=== PATIENT | male | born 1965 | race Caucasian/White ===

== ENCOUNTER → 2023-08-23 15:23 | Outpatient (REF) | payer OTHER, SELFPAY | LOC: RAD 15:23 | PROVIDERS: ATTENDING PHYSICIAN Internal Medicine | DX: R31.29 Other microscopic hematuria (principal) | CPT/HCPCS: 74178; Q9967 ==

== ENCOUNTER 2023-08-25 17:02 | Inpatient (IN) | payer OTHER, SELFPAY ==
[2023-08-25 13:50] VITALS: BP 128/74
[2023-08-25 14:30] LABS: Hematocrit 37.2 % (39.0-52.0); Hemoglobin 13.1 g/dL (13.0-18.0); Mean Corp Hgb Conc. 35.2 g/dL (33.0-37.0); Mean Corpuscular Hgb 33.9 pg (27.0-31.0); Mean Corpuscular Volume 96.1 fL (80.0-94.0); Mean Platelet Volume 11.2 fL (7.4-10.4); Platelet Count 130 10^3/uL (130-400); Red Blood Cell Count 3.87 10^6/uL (4.70-6.10); White Blood Cell Count 4.6 10^3/uL (4.8-10.8)
[2023-08-25 14:36] LABS: ALT (SGPT) 31 U/L (0-50); AST (SGOT) 31 U/L (17-59); Albumin 3.6 g/dl (3.5-5.0); Alkaline Phosphatase 41 U/L (38-126); Blood Urea Nitrogen 11 mg/dl (9-20); Calcium 8.8 mg/dl (8.4-10.2); Carbon Dioxide 33 mmol/L (22-30); Chloride 105 mmol/L (98-107); Glucose 129 mg/dl (70-99); Sodium 139 mmol/L (135-145); Total Bilirubin 1.1 mg/dl (0.2-1.3); Total Protein 5.8 g/dl (6.3-8.2); eGFR > 60.00
[2023-08-25 14:45] LABS: Absolute Neutrophils -Man Diff 2.9 10^3/uL (1.4-6.5); Band Neutrophils 1 % (0-3); Eosinophils 5 % (0-6); Lymphocytes 28 % (20-51); Monocytes 3 % (2-9); Segmented Neutrophils 63 % (42-75)
[2023-08-25 14:46] LABS: Normal RBC Morphology Yes; Platelets Checked Yes; Total Cells Counted 100
[2023-08-25 15:24] VITALS: BMI 36.1
[2023-08-25 15:32] LABS: Urine Albumin Negative (Neg - Trace); Urine Bilirubin Negative (Negative); Urine Character Clear (Clear); Urine Color Yellow; Urine Glucose Negative (Negative); Urine Ketone Negative (Negative); Urine Leukocyte Trace (Negative); Urine Nitrite Negative (Negative); Urine Occult Blood 4+ (Negative); Urine Specific Gravity 1.015 (<1.030); Urine Urobilinogen Negative (Neg - 1+)
--- NOTE | 2023-08-25 15:39 | ED.GENMED ---
History of Present Illness
General
Chief Complaint: Abnormal Lab Value
Source: patient
Exam Limitations: none
Time Seen by Provider: 08/25/23 15:08
Travel History
Have you had any contact with someone who has COVID-19?: No
Do you have any symptoms of coronavirus? Fever > 100 degrees, chills, cough, shortness of breath, sore throat, loss of taste or smell, muscle aches, or headache?: No
History of Present Illness
History of Present Illness:
58-year-old male presents in referral from family doctor with back pain. Patient had an outpatient CT scan done 2 days ago which demonstrated a 6 x 7 mm stone in the right mid ureter as well as a 4 mm stone in the left proximal ureter. He was sent
in for further evaluation. Is been no fever or vomiting. He is urinating well. He is on Eliquis for history of multiple blood clots. No other complaints at this time
Past History
Past History
ED Past Medical History: HTN, Hypercholesterolemia, Other (chronic back pain takes Gabapentin) and Other (Psoriatic arthritis, started Orencia infusion 07/2022)
ED Past Surgical History: Appendectomy
Social History
Tobacco: Non-smoker
Alcohol: Occasional
Personal:
Living: with family
Employment: Employed
Phy Exam
Physical Exam
Physical Exam:
General: Well-appearing male no acute respiratory distress
HEENT: Normocephalic atraumatic
Heart: Regular rate and rhythm no murmurs
Lungs: Clear to auscultation bilaterally no wheezing
Abdomen is soft nontender nondistended no guarding rebound normal bowel sounds
Extremities: No cyanosis or edema
Course
Orders/Labs/Results
Orders:
Orders
08/25/23 14:02
CMP [Comprehensive Metabolic Panel] Urgent
Complete Blood Count/With Diff Urgent
Manual Differential Urgent
08/25/23 15:23
Urinalysis Reflex To Culture Urgent
Date Specimen was Collected: 08/25/23
Time Specimen was Collected: 15:20
Urine Microscopic Reflex Cult Urgent
08/25/23 15:38
Tamsulosin [Flomax] 0.4 mg PO NOW STA
Abnormal Lab Results
08/25/23 08/25/23
14:02 15:23
WBC 4.6 L 10^3/uL
(4.8-10.8)
RBC 3.87 L 10^6/uL
(4.70-6.10)
Hct 37.2 L %
(39.0-52.0)
MCV 96.1 H fL
(80.0-94.0)
MCH 33.9 H pg
(27.0-31.0)
MPV 11.2 H fL
(7.4-10.4)
Carbon Dioxide 33 H mmol/L
(22-30)
Glucose 129 H mg/dl
(70-99)
Total Protein 5.8 L g/dl
(6.3-8.2)
Ur Occult Blood Reflex 4+ A
(Negative)
Leukocyte Esterase Rfl Trace A
(Negative)
08/25/23 14:02
08/25/23 14:02
Vital Signs
Initial and Last Documented VS:
Initial Vital Signs
Temp Pulse Resp BP Pulse Ox
98.1 F 59 18 128/74 97
08/25/23 13:50 08/25/23 13:50 08/25/23 13:50 08/25/23 13:50 08/25/23 13:50
Last Documented Vital Signs
Temp Pulse Resp BP Pulse Ox
98.1 F 59 18 128/74 97
08/25/23 13:50 08/25/23 13:50 08/25/23 13:50 08/25/23 13:50 08/25/23 13:50
MDM/Problems Addressed
Differential Diagnosis Includes:
I reviewed the CAT scan done as an outpatient which demonstrates bilateral obstructing ureteral stones. Immediately called urology and notified them of the findings. Renal functions are stable no fever. Urology prefers to take patient to the OR
tomorrow and hold Eliquis until then. Will admit to hospitalist
*Critical Care Note
Total Time (30-74mins, 75-104mins- exclusive of procedures): Not Applicable
ED Attending Note
-
Portions of this chart may have been created with voice recognition software.� Occasional wrong word or��sound alike� substitutions may have occurred due to the inherent limitations of voice recognition software.
Discharge Plan
Departure
Patient Disposition: Admit
Date of Disposition: 08/25/23
Time of Disposition: 15:41
Admit to: Med/Surg
Presentation/result/management discussed w/ accepting MD/DO: Hospitalist
Discharge Problem:
Bilateral ureteral calculi
Prescriptions:
No Action
furosemide [Lasix] 40 mg Tablet
40 mg PO NOON
atorvastatin [Lipitor] 20 mg Tablet
20 mg PO QPM
atenolol 100 mg Tablet
100 mg PO QPM
amlodipine [Norvasc] 5 mg Tablet
5 mg PO QPM
ascorbic acid (vitamin C) [Vitamin C] 500 mg Tablet
500 mg PO BID
methotrexate sodium 2.5 mg Tablet
10 mg PO SUSA
diphenhydramine HCl [Benadryl] 25 mg Capsule
25 - 50 mg PO HS
calcium polycarbophil [FiberCon] 625 mg Tablet
1,250 mg PO TID
folic acid 1 mg Tablet
1 mg PO DAILY
magnesium oxide 250 mg magnesium Tablet
500 mg PO QPM
Orencia 50 mg/0.4 mL Syringe
50 mg SC Q4W
gabapentin 300 mg Capsule
900 mg PO TID
Eliquis 5 mg tablet
5 mg PO BID
Referrals:
Brian Saleem, [Family Provider] -
Interventions
Interventions:
*Risk Screen - Suicide Last Done: 08/25/23 13:50
*General Assessment Last Done: 08/25/23 13:50
*Neglect/Abuse Screening Last Done: 08/25/23 13:50
ED- Fall Risk Assessment Last Done: 08/25/23 15:25
*ED COVID-19 Vaccine History Last Done: 08/25/23 13:50
[2023-08-25 15:42] LABS: Urine Bacteria Few (Negative); Urine Red Blood Cell 40-50 /HPF (0-2)
[2023-08-25] MEDS: FLOMAX 0.400000000000000022 MG PO ×2 (15:42→21:04)
--- NOTE | 2023-08-25 16:11 | HPS.HSE ---
Family Physician
-
Family Physician: Brian Saleem
Chief Complaint
-
Obstructing stones on CT scan (sent in by PCP)
History of Present Illness
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
nephrolithiasis. Pt had CT a/p performed 08/23 as follow up for intermittent hematuria since June. Reports hematuria initially being light, but then having some darker clots. Denies any significant worsening of flank pain. Endorses chronic left
sided back/flank pain related to back problems. Denies fever, chills, dizziness/LH, CP, palps, wheezing, cough, abd pain, n/v/d/c, dysuria. Last dose of eliquis this morning. Did not take lasix today.
ER course: Pt presents BP 173/102 -> 128/74, other V.S.S. WBC 4.6K. BUN/Cr 11/.1. UA few bact, 3-5 WBC, 4+ Blood. CT a/p with 6x7 mm mid right ureteral stone with mod hydroureteronephrosis and 4mm prox calculus in left ureter with adjacent 2mm calc
probable low grade partial obstruction. Additional b/l nonobstructing intrarenal calculi and renal cysts. Case D/W Urology Dr. Cordova. Tenative plan for OR tomorrow with eliquis on hold. S/P 0.4mg Flomax in ER.
Medical History
Past Medical History
Past Medical History: Reports Other (DVT/PE on Eliquis,�Right Brachial Artery Thrombosis s/p Thrombectomy, CVA, HTN/HLD, Chronic Pain/Neuropathy, Psoriatic Arthritis, Nephrolithiasis)
Past Surgical History: Reports Other (Appendectomy, RUE Thrombectomy)
Social History
Tobacco: Non-smoker
Alcohol: Occasional (social)
Drug: None
Personal:
Living: With Family
Family History
Family History: Other (Denies FHx of blood clots. Mother with HTN)
Allergies / Home Medications
Allergies reflects when Allergies were last updated in [employer].
Home Medications with original date entered in [employer]
Allergy/Medication List:
Allergies
Allergy/AdvReac Type Severity Reaction Status Date / Time
latex Allergy Mild Rash Verified 08/25/23 13:50
Home Medications
abatacept 50 mg/0.4 mL subcutaneous syringe (Orencia) 50 mg SC Q4W Anti-inflammatory 09/02/22
amlodipine 5 mg tablet (Norvasc) 5 mg PO QPM Blood pressure 09/02/22
ascorbic acid (vitamin C) 500 mg tablet (Vitamin C) 500 mg PO BID Supplement 09/02/22
atenolol 100 mg tablet 100 mg PO QPM Blood pressure 09/02/22
atorvastatin 20 mg tablet (Lipitor) 20 mg PO QPM High cholesterol 09/02/22
calcium polycarbophil 625 mg tablet (FiberCon) 1,250 mg PO TID Gastrointestinal issue 09/02/22
diphenhydramine HCl 25 mg capsule (Benadryl) 25 - 50 mg PO HS Allergies 09/02/22
folic acid 1 mg tablet 1 mg PO DAILY Supplement 09/02/22
furosemide 40 mg tablet (Lasix) 40 mg PO NOON Fluid retention/Swelling 09/02/22
magnesium oxide 500 mg PO QPM Supplement 09/02/22
methotrexate sodium 2.5 mg tablet 10 mg PO SUSA Anti-inflammatory 09/02/22
apixaban 5 mg tablet (Eliquis) 5 mg PO BID 08/25/23
gabapentin 300 mg capsule 900 mg PO TID 08/25/23
Review of Systems
-
A 12 point ROS was completed and negative except as noted: Yes
Physical Exam
Vital Signs
Vital Signs
Temp Pulse Resp BP Pulse Ox
98.1 F 59 18 128/74 97
08/25/23 13:50 08/25/23 13:50 08/25/23 13:50 08/25/23 13:50 08/25/23 13:50
Physical Exam
General: Well Developed, Well Nourished and No Apparent Distress
HEENT: NormoCephalic, Moist mucous membranes and Atraumatic
Respiratory: Clear
Cardiac: S1/S2 and Regular Rhythm; No Murmur or Rub
GI: Soft, Non Tender, Non Distended and Normal Bowel Sounds; No Organomegaly
Rectal: Deferred by Provider
Genito-urinary: Costovertebral angle tend (Mild on left); No Membreno
Musculoskeletal: No Clubbing, No Cyanosis, Edema, Left Lower Extremity (1+), Edema, Right Lower Extremity (trace) and No Edema
Skin: Warm and Dry; No Rash, Ulcers or Lesions
Neuro: Awake, Alert, Oriented, AO x 3, No Motor Deficits, Nonfocal/grossly intact and Other (+TTP left flank/back.)
Hematologic/Lymphatic: No Lymphadenopathy
Psych: Calm
Laboratory Results
-
08/25/23 14:02
08/25/23 14:02
Laboratory Results
Total Bilirubin 1.1 mg/dl (0.2-1.3) 08/25/23 14:02
AST 31 U/L (17-59) 08/25/23 14:02
ALT 31 U/L (0-50) 08/25/23 14:02
Alkaline Phosphatase 41 U/L (38-126) 08/25/23 14:02
Data Reviewed
-
Diagnostic Radiology: Report Reviewed by me
CT Scan: Report Reviewed by me
Lab Data: Labs Reviewed by me
Old Records: Reviewed
Impression/Plan
-
Obstructive Uropathy
- CT a/p with 6x7 mm mid right ureteral stone with mod hydroureteronephrosis and 4mm prox calculus in left ureter with adjacent 2mm calc probable low grade partial obstruction. Additional b/l nonobstructing intrarenal calculi and renal cysts.
- NPO. IVF. Flomax. Prn Analgesia with tylenol/morphine. Prn Antiemetics
- Urology notified and consulted. Tenative plan for OR tomorrow with eliquis on hold. Will need to consider heparin gtt if no immediate plans for surgery
Hematuria
- 2/2 above. 4+ Blood on UA. Eliquis on hold. Trend H&H for stability
- Further management as per urology
Hx PE/DVT / RUE Arterial Thrombosis
- s/p Thrombectomy 08/2022
- Last dose of eliquis this morning. Will need to consider heparin gtt if no immediate plans for surgery
CVA
- ~1month ago, resolved left sided deficits and facial droop
- Continue eliquis and statin
HTN/HLD
- BP 170/100s on admission. Likely 2/2 pain. Monitor trends with appropriate analgesia
- Cont home amlodipine and atenololl. Will hold lasix for now
- Continue home statin
Chronic Pain/Neuropathy
- Continue home gabapentin
Psoriatic Arthritis
- Continue home orencia on discharge
- Continue home MTX
Code status: Full
Diet: Cardiac, NPO at midnight
PPx: Eliquis held (last dose 08/25 AM). SCDs.
[2023-08-25 17:12] VITALS: BP 131/81
[2023-08-25 17:45] VITALS: BP 133/81; BMI 35.8
[2023-08-25] MEDS: LR 1000 IV (18:01)
[2023-08-25] MEDS: NORVASC PO ×2 (18:28→18:32)
[2023-08-25] MEDS: LIPITOR 20 MG PO (18:28)
[2023-08-25] MEDS: MAGNESIUM OXIDE 500 MG PO (18:28)
[2023-08-25] MEDS: TENORMIN 100 MG PO (18:29)
--- NOTE | 2023-08-25 18:32 | PTCARENOTE ---
pt presents from ED via strertcher. pt is independent. denies any pain or discomfort. pt is oriented to the room. call galvez within the reach. will continue plan of care.
[2023-08-25 19:30] VITALS: BP 131/63
[2023-08-25] MEDS: VITAMIN C 500 MG PO (19:56)
[2023-08-25] MEDS: FIBERCON 1250 MG PO (21:04)
[2023-08-25] MEDS: NEURONTIN 900 MG PO (21:04)
[2023-08-25 23:55] VITALS: BP 112/59
[2023-08-26] VITALS (11 sets, daily range): BP systolic 105–146; BP diastolic 54–90
[2023-08-26] MEDS: LR 1000 IV (02:55)
[2023-08-26 08:39] LABS: Hematocrit 36.4 % (39.0-52.0); Hemoglobin 12.6 g/dL (13.0-18.0); Mean Corp Hgb Conc. 34.6 g/dL (33.0-37.0); Mean Corpuscular Hgb 33.6 pg (27.0-31.0); Mean Corpuscular Volume 97.1 fL (80.0-94.0); Mean Platelet Volume 11.6 fL (7.4-10.4); Nucleated Red Blood Cells % 0 % (-); Platelet Count 122 10^3/uL (130-400); Red Blood Cell Count 3.75 10^6/uL (4.70-6.10); Red Cell Dist. Width 14.3 % (11.5-14.5); White Blood Cell Count 4.2 10^3/uL (4.8-10.8)
[2023-08-26 08:43] LABS: INR 1.42; PT 17.2 Sec (11.4-14.6)
--- NOTE | 2023-08-26 08:45 | W.PN.UPDATE ---
Update Note
Progress Note Update
58M w/ significant PMH (DVT/PE on Eliquis, RUE arterial thrombosis s/p thrombectomy, CVA) presents to ER with hematuria w/ clots (hematuria since June).
Notes chronic left flank/back pain related to h/o back pain.
Denies F/C/N/V.
Justin dysuria.
Last dose Eliquis 08/25 AM.
Prior urologic h/o kidney stone passage w/o surgical intervention.
WBC wnl
Cr wnl
UA +RBCs
CTAP w/wo IV contrast:
6 x 7 mm calculus in the mid RIGHT ureter. Moderate proximal hydroureteronephrosis, consistent with obstructive uropathy.
4 mm calculus in the proximal left ureter, with adjacent approximately 2 mm calculus. Probable low-grade partial obstruction.
Additional bilateral nonobstructing intrarenal calculi. Bilateral renal cysts.
A/P:
Bilateral obstructing ureteral stones w/ obstructive uropathy
Detailed discussion including SDM had w/ patient regarding risks, benefits, alternatives, and potential complications of cysto/stent placement including but not limited to urosepsis, bleeding, ureteral/bladder injury, need for additional procedures.
Given BILATERAL obstructing ureteral stones in setting of last Eliquis dose <24 hrs ago and significant risk of thromboembolic disease - will proceed with bilateral stent placement only.
- NPO
- IV Ancef 2g pony trimmer to OR
- Surgical consent to be signed in preop
- To OR for cysto/bilateral stent placement
- Plan for definitive stone treatment as outpatient after clearance by Hematology
Discussed plan of care w/ patient.
[2023-08-26 08:56] LABS: Blood Urea Nitrogen 10 mg/dl (9-20); Calcium 8.8 mg/dl (8.4-10.2); Carbon Dioxide 31 mmol/L (22-30); Chloride 103 mmol/L (98-107); Estimated Creatinine Clearance 102 ml/min; Glucose 91 mg/dl (70-99); Magnesium 2.1 mg/dl (1.6-2.3); Potassium 3.8 mmol/L (3.5-5.1); Sodium 140 mmol/L (135-145); eGFR > 60.00
[2023-08-26] MEDS: NEURONTIN 900 MG PO ×3 (09:02→20:06)
[2023-08-26] MEDS: FIBERCON 1250 MG PO ×3 (09:03→20:07)
[2023-08-26] MEDS: VITAMIN C 500 MG PO ×2 (09:03→20:09)
[2023-08-26] MEDS: FOLVITE 1 MG PO (09:04)
[2023-08-26] MEDS: METHOTREXATE 10 MG PO (09:06)
--- NOTE | 2023-08-26 09:41 | W.PN.HOSP.TC ---
Today's Communication/Plan
-
see bold
Assessment / Plan
Assessment / Plan
Gen: NAD, AAOx3.
Eyes: EOMI, PERRLA, no scleral icterus.
Neck: supple.
CV: RRR, +S1/S2, no m/r/g.
Resp: CTAB, no rales, wheezes, or rhonchi.
Abd: +BS, soft, NT, ND
Skin: No rashes.
Neuro: CN 2-12 intact, non-focal.
Psych: Normal mood and affect.
Obstructive Uropathy:
- CT a/p with 6x7 mm mid right ureteral stone with mod hydroureteronephrosis and 4mm prox calculus in left ureter with adjacent 2mm calc probable low grade partial obstruction. Additional b/l nonobstructing intrarenal calculi and renal cysts.
- NPO. IVF. Flomax. Prn Analgesia with tylenol/morphine. Prn Antiemetics
- Urology following, for B/L ureteral stents today
Hematuria
- 2/2 above. 4+ Blood on UA. Eliquis on hold. Trend H&H for stability
- Case discussed over the phone with Dr. Cordova at [phone] on 08/26/23. He states that eliquis can be restarted 08/28/23AM.
Hx PE/DVT / RUE Arterial Thrombosis
- s/p Thrombectomy 08/2022
- Last dose of eliquis 08/25/23AM.
h/o CVA
- ~1month ago, resolved left sided deficits and facial droop
- Continue eliquis (once OK with Urology) and statin
HTN/HLD
- BP 170/100s on admission. Likely 2/2 pain. Monitor trends with appropriate analgesia
- Cont home amlodipine and atenololl. Will hold lasix for now
- Continue home statin
Chronic Pain/Neuropathy
- Continue home gabapentin
Psoriatic Arthritis
- Continue home orencia on discharge
- Continue home MTX
Full/SCDs.
Anticipated Discharge: Within 24 hours
Subjective/Interval History
-
Date of Service: August 26, 2023
No new complaints. Denies CP/SOB/abd pain.
Objective Data
-
Labs:
Laboratory Results
08/26/23
08:08
WBC 4.2 L
Hgb 12.6 L
Hct 36.4 L
Plt Count 122 L
PT 17.2 H
INR 1.42
Sodium 140
Potassium 3.8
Chloride 103
Carbon Dioxide 31 H
BUN 10
Creatinine 1.0
Glucose 91
Calcium 8.8
Vital Signs:
Vital Signs
Temp Pulse Resp BP Pulse Ox
98.4 F 60 18 105/54 97
08/26/23 07:41 08/26/23 07:41 08/26/23 07:41 08/26/23 07:41 08/26/23 07:41
I&O
08/25/23 08/26/23 08/27/23
06:59 06:59 06:59
Intake Total 480 / 480 1680 / 1680
Output Total 350 / 350 675 / 675
Balance 130 / 130 1005 / 1005
[2023-08-26] MEDS: ANCEF 10 IV (10:40)
--- NOTE | 2023-08-26 10:47 | W.PN.UPDATE ---
Update Note
Progress Note Update
Case discussed again with Dr. Cordova. Pt can go back on Eliquis tomorrow AM.
--- NOTE | 2023-08-26 10:50 | W.PN.UPDATE ---
Update Note
Progress Note Update
Heparin gtt ordered to start at 1800 today (post op) in pt with DVT/PE and RUE arterial thrombus. Dr. Cordova is OK with heparin gtt.
[2023-08-26 11:07] LABS: APTT 35.7 Sec (23.4-35.0)
--- NOTE | 2023-08-26 11:43 | W.IMMPOSTOP ---
Addendum entered and electronically signed by Mahendra Cordova MD 08/26/23 12:05:
Spouse (Arlen) updated post-op.
s/p bilateral stent placement and catheter placement - noted to have friable prostate gland secondary to Eliquis.
Advise against hep gtt terri (d/w Hospitalist) w/ plan for TOV within 24 hrs.
Will need definitive outpatient stone surgery once cleared by Hematology w/ Eliquis recs.
Original Note:
Surgical Immed Post Op Note
-
Primary Surgeon: Tasha
Pre-op Diagnosis: Bilateral obstructing ureteral stones
Post-op Diagnosis: Same
Procedure Performed: cysto, bilateral ureteral stent placement
Anesthesia Type: LMA
Specimen / Cultures: None/None
Estimated Blood Loss: 3 cc
Drains:
1. Bilateral 6Fr x 26 cm JJ ureteral stents
2. 20Fr Coude catheter
Complications: None
Operative Findings: friable prostate gland (<24 hrs off Eliquis) with cystitis, bilateral JJ stents confirmed in appropriate position via final KUB and cystoscopy at conclusion of procedure.
--- NOTE | 2023-08-26 11:49 | W.PN.UPDATE ---
Update Note
Progress Note Update
Case discussed with Dr. Cordova post-op and he is now recommending against heparin gtt tonight. Will place back on tele (precautionary).
--- NOTE | 2023-08-26 12:29 | PTCARENOTE ---
Patient is back in room from OR. Patient is aaox3, denies pain or discomfort. States he feels like he has to urinate. Membreno catheter in place and draining punch color urine. Call galvez within reach.
[2023-08-26 12:34] LABS: Absolute Neutrophils -Man Diff 2.9 10^3/uL (1.4-6.5); Band Neutrophils 3 % (0-3); Eosinophils 1 % (0-6); Lymphocytes 22 % (20-51); Monocytes 6 % (2-9); Normal RBC Morphology Yes; Platelets Checked Yes; Segmented Neutrophils 68 % (42-75); Total Cells Counted 100
[2023-08-26] MEDS: DETROL LA 4 MG PO (13:16)
[2023-08-26] MEDS: NORVASC 5 MG PO (18:07)
[2023-08-26] MEDS: VALIUM INJECTION 5 MG IM (18:07)
[2023-08-26] MEDS: TENORMIN 100 MG PO (18:07)
[2023-08-26] MEDS: MAGNESIUM OXIDE 500 MG PO (18:07)
[2023-08-26] MEDS: LIPITOR 20 MG PO (18:07)
[2023-08-26] MEDS: NSS 1000 IV (18:16)
[2023-08-26] MEDS: FLOMAX 0.400000000000000022 MG PO ×2 (18:20→20:09)
--- NOTE | 2023-08-26 18:21 | PTCARENOTE ---
Patient with increasing bladder discomfort, states he feels nauseas from the amount of discomfort. He states his bladder feels full. Dark punch color urine in bedoya tubing. Urologist notified. Valium IM ordered for bladder spasm, d.c bedoya ordered,
IVF, and flomax ordered and administered. Patient appears more comfortable states the nausea went away. KH SCD on, at bedside, patient will notify RN when he urinates. Patient updated on plan of care. Call galvez within reach.
[2023-08-26 22:35] LABS: Hepatitis C Antibody Negative (Negative)
[2023-08-27 03:55] VITALS: BP 128/79
[2023-08-27] MEDS: NSS 1000 IV (05:51)
--- NOTE | 2023-08-27 07:25 | W.PN.HOSP.TC ---
Today's Communication/Plan
-
discharge
Assessment / Plan
Assessment / Plan
Gen: NAD, AAOx3.
Eyes: EOMI, PERRLA, no scleral icterus.
Neck: supple.
CV: RRR, +S1/S2, no m/r/g.
Resp: CTAB, no rales, wheezes, or rhonchi.
Abd: +BS, soft, NT, ND
Skin: No rashes.
Neuro: CN 2-12 intact, non-focal.
Psych: Normal mood and affect.
Obstructive Uropathy:
- CT a/p with 6x7 mm mid right ureteral stone with mod hydroureteronephrosis and 4mm prox calculus in left ureter with adjacent 2mm calc probable low grade partial obstruction. Additional b/l nonobstructing intrarenal calculi and renal cysts.
- Prn Analgesia with tylenol/morphine. Prn Antiemetics
- Urology eval appreciated s/p B/L ureteral stents 08/26
Hematuria resolving
- 2/2 above. 4+ Blood on UA. Eliquis on hold. H&H relatively stable
- Urology Eval appreciated
-Eliquis to resume Mon 08/28
Hx PE/DVT / RUE Arterial Thrombosis
- s/p Thrombectomy 08/2022
- Last dose of eliquis 08/25/24AM.
h/o CVA
- ~1month ago, resolved left sided deficits and facial droop
- Eliquis to resume as above, cont statin
HTN/HLD
- BP 170/100s on admission. Likely 2/2 pain. Monitor trends with appropriate analgesia
- Cont home amlodipine and atenololl. Will hold lasix for now
- Continue home statin
-BP since improved
Chronic Pain/Neuropathy
- Continue home gabapentin
Psoriatic Arthritis
- Continue home orencia on discharge
- Continue home MTX
Full/SCDs.
Medically stable for discharge home with outpatient follow up recommendations.
discussed with patient and his
Total Time Preparing Discharge ___50____ minutes including examination of the patient, summary of the hospital stay, instructions for continuing care to all relevant caregivers; and preparation of discharge records, prescriptions, and referral
forms if necessary.
Anticipated Discharge: Today
Subjective/Interval History
-
Date of Service: August 27, 2023
Seen and examined at bedside in no acute distress resting comfortably in bed. Reports overall feeling well. Eager to go home.
Objective Data
-
Vital Signs:
Vital Signs
Temp Pulse Resp BP Pulse Ox
97.8 F 73 18 128/79 95
08/27/23 03:55 08/27/23 03:55 08/27/23 03:55 08/27/23 03:55 08/27/23 03:55
I&O
08/26/23 08/27/23 08/28/23
06:59 06:59 06:59
Intake Total 480 / 480 1780 / 1780
Output Total 350 / 350 1550 / 1550 735 / 735
Balance 130 / 130 230 / 230 -735 / -735
[2023-08-27] MEDS: VITAMIN C 500 MG PO (09:00)
[2023-08-27] MEDS: FIBERCON 1250 MG PO (09:00)
[2023-08-27] MEDS: FOLVITE 1 MG PO (09:00)
[2023-08-27] MEDS: NEURONTIN 900 MG PO (09:00)
[2023-08-27] MEDS: METHOTREXATE 10 MG PO (09:04)
--- NOTE | 2023-08-27 09:15 | W.PN.URO.CBU ---
Today's Communication / Plan
-
OK to d/c home from urologic perspective
Advise restarting Eliquis Mon 08/28 if cleared by Hospital Medicine
F/U in 2 weeks for preop visit to schedule definitive outpatient stone surgery
D/w patient.
D/w Dr. Malcolm.
Assessment / Plan
-
Bilateral ureteral obstruction - secondary to bilateral ureteral stones => s/p bilateral ureteral stent placemetn 08/26
Hematuria => improving
Given hematuria observed post-op yesterday, advised HOLDING anticoagulation today.
Will require Hematology clearance as outpatient to hold Eliquis >48 hrs for definitive stone surgery (bilateral ureteral stones).
Diagnosis
-
Date of Service: August 27, 2023
-
Patient Diagnosis:
Bilateral ureteral obstruction - bilateral ureteral stones
Hematuria secondary to Eliquis anticoagulation
Post Op Day:
08/26: s/p cysto + bilateral ureteral stent placement
Subjective
-
Markedly happier without Membreno catheter.
Voiding brown-tinged urine - improved from hematuria post-op yesterday.
Denies dysuria.
Denies passage of clots.
Tolerating diet.
Objective
-
Vital Signs
Temp Pulse Resp BP Pulse Ox
97.8 F 73 18 128/79 95
08/27/23 03:55 08/27/23 03:55 08/27/23 03:55 08/27/23 03:55 08/27/23 03:55
Intake and Output
08/26/23 08/27/23 08/28/23
06:59 06:59 06:59
Intake Total 480 / 480 1780 / 1780
Output Total 350 / 350 1550 / 1550 735 / 735
Balance 130 / 130 230 / 230 -735 / -735
Intake:
Oral fluids 480 / 480 480 / 480
IV fluids (Total) 1300 / 1300
normosol 100 / 100
Output:
Urine, Membreno 875 / 875
Urine, Voided 350 / 350 675 / 675 735 / 735
Other:
Number of approximated MODERATE 1
amounts of urine
Laboratory Results
08/26/23 10:49
08/26/23 08:08
Physical Exam
-
General - well developed, well nourished, no acute distress
Abdomen - soft, non-tender
Genitalia - normal
Skin - warm & dry with no rash
Neuro - AOx3, no motor deficits
Extremities - no clubbing, no cyanosis, no edema
Care Review
Data Reviewed
Discussed with: Hospitalist
CT Scan: Report Pers Reviewed and Image Pers Reviewed
Total Time Spent with Patient (in minutes): 35
[2023-08-27 11:14] VITALS: BP 120/66
[2023-08-27 15:20] VITALS: BP 132/71
--- NOTE | 2023-08-27 15:55 | W.DCSUMMARY ---
Discharge Summary
Discharge Data
Date of Admission: 08/25/23
Date of Discharge: 08/27/23
-
Pending Results: No
Hospital Course
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
Pt had CT a/p performed 08/23 as follow up for intermittent hematuria since June. Reported hematuria initially light became progressively darker with clots. Denied any significant worsening of flank pain. Endorsed chronic left sided back/flank
pain related to back problems. Denied fever, chills, dizziness/LH, CP, palps, wheezing, cough, abd pain, n/v/d/c, dysuria. CT a/p noted 6x7 mm mid right ureteral stone with mod hydroureteronephrosis and 4mm prox calculus in left ureter with
adjacent 2mm calc, probable low grade partial obstruction. Additional b/l nonobstructing intrarenal calculi and renal cysts. Urology evaluated and placed B/L ureteral stents 08/26. Hematuria resolving post-procedure, Eliquis was recommended to
resume 08/28. Medically stable, patient was discharged home with outpatient follow up recommendations.
Discharge Plan
-
Patient Disposition: Home (Routine Discharge)
Discharge Diagnosis/Procedures: Hematuria, bilateral ureteral obstruction due to bilateral ureteral stones status post bilateral stent placements 08/26, obstructive uropathy, history deep venous thrombosis/pulmonary embolism, recent history stroke,
hypertension, hyperlipidemia, chronic pain/neuropathy, psoriatic arthritis
Condition: Fair
Diet: Regular
Activity: As tolerated
Driving Restrictions: As prior to admission
Blood Work: Please repeat cbc in 2-3 days after resuming Eliquis Monday 08/28, results to be forwarded to your primary care provider and urology- script has been provided to facilitate.
Activity Restrictions/Additional Instructions:
Please follow up with your primary care provider in 1 week of discharge and Urology in 2 weeks of discharge.
Resume Eliquis tomorrow Monday 08/28. It is expected that you will have mild intermittent hematuria over the next few weeks. If worsening bleeding in urine or clots with inability to void, stop Eliquis immediately and contact urology office.
Flomax has been prescribed for obstructive uropathy. Discuss with urology or primary care provider before considering to discontinue.
Please take medications as prescribed/recommended and follow up with primary care provider and/or other healthcare provider involved in your care for refills and/or further adjustments to your medication regimen as necessary.
Instructions: Ureteral Stent (DC)
Referrals:
Brian Saleem DO [Family Provider] - in one week
Mahendra Cordova MD [Active] - in two weeks
(Please call Dr. Cordova's office to schedule a PREOP visit in 2 weeks from your discharge.
Dr. Cordova will schedule you for outpatient kidney stone surgery within the next 3 weeks (to address obstructing stones on both sides).
You should also contact Dr. Manuel's office ([employer]) to obtain CLEARANCE to hold Eliquis formally for your upcoming kidney stone surgery.)
Prescriptions:
New
tamsulosin 0.4 mg Capsule
0.4 mg PO HS 30 Days Qty: 30 0RF
Continued
furosemide [Lasix] 40 mg Tablet
40 mg PO NOON
atorvastatin [Lipitor] 20 mg Tablet
20 mg PO QPM
atenolol 100 mg Tablet
100 mg PO QPM
amlodipine [Norvasc] 5 mg Tablet
5 mg PO QPM
ascorbic acid (vitamin C) [Vitamin C] 500 mg Tablet
500 mg PO BID
methotrexate sodium 2.5 mg Tablet
10 mg PO SUSA
diphenhydramine HCl [Benadryl] 25 mg Capsule
25 - 50 mg PO HS
calcium polycarbophil [FiberCon] 625 mg Tablet
1,250 mg PO TID
folic acid 1 mg Tablet
1 mg PO DAILY
magnesium oxide 250 mg magnesium Tablet
500 mg PO QPM
Orencia 50 mg/0.4 mL Syringe
50 mg SC Q4W
gabapentin 300 mg Capsule
900 mg PO TID
Held
Eliquis 5 mg tablet
5 mg PO BID
Hold Instructions: Resume on 08/28/23.
Discharge Orders:
Discharge Patient (As Directed); Ordered 08/27/23
Ordered By: Finesse Malcolm
Discharge Date and Time
Discharge Date/Time: 08/27/23 16:50
--- NOTE | 2023-08-27 16:48 | CM ---
CM following re: d/c planning
Chart reviewed
CM met with the patient and his sister at bedside; IA completed
Pt states he and his spouse reside in a [place] with no PAWAN
[employer] patient reports independence at baseline
Pt has no past hx of VN/SNF however does have a w/c and pair of crutches at home for use if needed
Pt confirms prescription coverage and rx's are filled at [facility] [address]
Pt PCP-Brian Saleem
Patient has been cleared medically for d/c and has no needs
PLAN: d/c home no needs
== END 2023-08-27 16:50 | disposition home or self-care (01) | DRG 660 ==
LOC: 4 EAST ACU 17:02
PROVIDERS: Physician Assistant; Surgery; ADMITTING PHYSICIAN Internal Medicine; ATTENDING PHYSICIAN Internal Medicine; EMERGENCY PHYSICIAN Emergency Medicine; FAMILY PHYSICIAN Internal Medicine
PROC: 0T788DZ Dilation of Bilateral Ureters with Intraluminal Device, Via Natural or Artificial Opening Endoscopic (ICD-10-PCS; 2023-08-26)
DX: N13.6 Pyonephrosis (principal); N20.2 Calculus of kidney with calculus of ureter; I10 Essential (primary) hypertension; N28.1 Cyst of kidney, acquired; E78.00 Pure hypercholesterolemia, unspecified; G89.29 Other chronic pain; G62.9 Polyneuropathy, unspecified; L40.50 Arthropathic psoriasis, unspecified; Z86.73 Personal history of transient ischemic attack (TIA), and cerebral infarction without residual deficits; Z87.442 Personal history of urinary calculi; Z86.711 Personal history of pulmonary embolism
CPT/HCPCS: 74018; 76000; 80048; 80053; 81003; 81015; 83735; 85025; 85610; 85730; 86803; 99284; C2617; J8610

== ENCOUNTER → 2023-09-13 17:47 | Outpatient (REF) | payer OTHER, SELFPAY | LOC: PAVMRI 17:47 | PROVIDERS: ATTENDING PHYSICIAN Anesthesiology Pain Medicine; FAMILY PHYSICIAN Internal Medicine | DX: M54.16 Radiculopathy, lumbar region (principal) | CPT/HCPCS: 72148 ==

== ENCOUNTER → 2023-09-29 09:56 | Outpatient (REF) | payer OTHER, SELFPAY | LOC: RAD 09:56 | PROVIDERS: ATTENDING PHYSICIAN Surgery Vascular Surgery; FAMILY PHYSICIAN Internal Medicine | DX: I74.2 Embolism and thrombosis of arteries of the upper extremities (principal) | CPT/HCPCS: 93923; 93930 ==

== ENCOUNTER 2023-10-13 06:20 | Day surgery (SDC) | payer OTHER, SELFPAY ==
--- NOTE | 2023-10-11 08:04 | PTCARENOTE ---
Cora @ Dr. Crawford office notified of patients 09/13 WBC 1.8
[2023-10-13] VITALS (8 sets, daily range): BP systolic 123–146; BP diastolic 68–88; BMI 35.9
[2023-10-13 13:20] LABS: INR 1.13; PT 14.3 Sec (11.4-14.6)
[2023-10-13 13:21] LABS: APTT 31.5 Sec (23.4-35.0)
[2023-10-13] MEDS: FLOMAX 0.400000000000000022 MG PO (15:03)
[2023-10-13] MEDS: Pyridium 200 MG PO (15:03)
[2023-10-16 22:15] LABS: Stone Analysis Mass 10 mg
== END 2023-10-13 16:00 | disposition home or self-care (01) ==
LOC: SDS 06:20
PROVIDERS: ATTENDING PHYSICIAN Surgery
DX: N20.2 Calculus of kidney with calculus of ureter (principal)
CPT/HCPCS: 52356; 74018; 76000; 82365; 85610; 85730; 93005; C1769; C1894; C2617

== ENCOUNTER → 2024-07-26 14:26 | Outpatient (REF) | payer OTHER, SELFPAY | LOC: RAD 14:26 | PROVIDERS: ATTENDING PHYSICIAN Surgery; FAMILY PHYSICIAN Internal Medicine | DX: N20.0 Calculus of kidney (principal) | CPT/HCPCS: 76775 ==

== ENCOUNTER → 2024-09-07 11:24 | Outpatient (REF) | payer OTHER, SELFPAY | LOC: RAD 11:24 | PROVIDERS: ATTENDING PHYSICIAN Internal Medicine | DX: S46.911D Strain of unspecified muscle, fascia and tendon at shoulder and upper arm level, right arm, subsequent encounter (principal) | CPT/HCPCS: 73030 ==

== ENCOUNTER → 2024-10-13 13:43 | Outpatient (REF) | payer OTHER, SELFPAY | LOC: MRI 3T 13:43 | PROVIDERS: ATTENDING PHYSICIAN Internal Medicine | DX: M25.511 Pain in right shoulder (principal); S46.911D Strain of unspecified muscle, fascia and tendon at shoulder and upper arm level, right arm, subsequent encounter | CPT/HCPCS: 73221 ==

== ENCOUNTER 2024-12-20 10:16 | Emergency (ER) | payer OTHER, SELFPAY ==
[2024-12-20 10:21] VITALS: BP 146/74
--- NOTE | 2024-12-20 10:44 | ED.MUSCINJ ---
HPI-Injury
General
Chief Complaint: Musculo-Skeletal Complaint
Source: patient
Exam Limitations: none
Time Seen by Provider: 12/20/24 10:34
Nursing documentation reviewed up to this point in time: agreed with
History of Present Illness-Injury
Initial Injury comments:
59-year-old male with history of TIA, sleep apnea on CPAP, PE and DVT on Eliquis, HTN, HLD, back surgery 2022, presents for left-sided neck pain, left shoulder pain radiating down to mid left forearm. This started 2 days ago, 2 days after standing
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 He cannot sleep due to the 04/18 pain. Denies numbness or weakness in LUE. Pain left neck aggravated with turning head to right. Pain left shoulder aggravated with
movement. Took Tylenol and a left over Gabapentin from his back surgery with no relief.
Medications:
Folic acid
Amlodipine
Lasix
Atorvastatin
Atenolol
Methotrexate once a month
Orencia infusion every 4 weeks
Past History
Past History
ED Past Medical History: HTN, Hypercholesterolemia and Other (Psoriatic arthritis, started Orencia infusion 07/2022)
ED Past Surgical History: Appendectomy, Orthopedic (back surgery 2022) and Urological (ureteral stents 08/2023)
Social History
Tobacco: Non-smoker
Alcohol: Occasional
Personal:
Living: with family
Employment: Employed (critical care nurse practitioner)
Review of Systems
Review of Systems
Allergies reviewed?: Yes
All Other Systems: ROS reviewed and negative except as documented in HPI and ROS
Constitutional: Denies fever
Respiratory: Denies trouble breathing
Cardiac: Denies chest pain
ABD/GI: Denies abdominal pain or nausea
Musculoskeletal: Reports neck pain and other (pain left shoulder radiating down to mid forearm)
Skin: Reports no symptoms
Neurological: Denies no symptoms, headache, weakness or numbness
Phy Exam
Physical Exam
Physical Exam:
GENERAL: No acute distress. A&Ox3.
CONSTITUTIONAL: Afebrile.
EYES: clear, conjunctivae normal
ENMT: moist mucus membranes, Pharynx nl
RESPIRATORY: Regular respirations, nonlabored, lungs clear.
CARDIOVASCULAR: Regular rate and rhythm, no murmurs, no rubs.
GI: Soft, nontender, normal BS
MUSCULOSKELETAL: Moderate tenderness to palpation left side neck STs, tender over left shoulder humeral head, elbow non tender. Limited ROM of neck rotation to right due to pain. Good ROM of LUE but with shoulder pain. Moves with ease. Well
perfused.
SKIN: Warm, dry, pink
PSYCH: Normal mood and affect. Well kept, interactive and appropriate
NEUROLOGIC: Awake, alert and oriented. No focal neurological deficits
Injury Course
Orders/Labs/Results
Orders:
Orders
12/20/24 10:43
Dexamethasone [Decadron] 10 mg PO NOW STA
Diazepam [Valium] 5 mg PO NOW STA
12/20/24 10:44
Shoulder, Left 2 View CR [CR Shoulder - Left Min 2 View*] Urgent
Comment:
Reason For Exam: pain after overuse
MDM/Problems Addressed
Differential Diagnosis Includes:
neck strain, cervical radiculopathy, shoulder strain, bursitis, calcific bursitis
MDM/Problems Addressed:
59-year-old male with history of TIA, sleep apnea on CPAP, PE and DVT on Eliquis, HTN, HLD, back surgery 2022, presents for left-sided neck pain, left shoulder pain radiating down to mid left forearm. This started 2 days ago, 2 days after standing
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 He cannot sleep due to the 10/10 pain. Denies numbness or weakness in LUE. Pain left neck aggravated with turning head to right. Pain left shoulder aggravated with
movement. Took Tylenol and a left over Gabapentin from his back surgery with no relief.
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
Rx for Prednisone taper and Flexeril sent to his pharmacy
He has appt. with orthopedic Dr. Tam in 3 days
*Critical Care Note
Total Time (30-74mins, 75-104mins- exclusive of procedures): Not Applicable
ED Attending Note
-
Portions of this chart may have been created with voice recognition software.� Occasional wrong word or��sound alike� substitutions may have occurred due to the inherent limitations of voice recognition software.
Discharge Plan
Departure
Patient Disposition: Home (Routine Discharge)
Date of Disposition: 12/20/24
Time of Disposition: 11:36
Patient with high blood pressure during this ER visit?: No
Condition: Good
Discharge Problem:
Calcific bursitis of shoulder, Acute cervical myofascial strain
Instructions: Frozen Shoulder Exercises, Neck pain - ED discharge instructions, Bursitis - ED discharge instructions
Prescriptions:
New
prednisone 10 mg Tablet
See Rx Instructions .ROUTE .COMPLEX Qty: 30 0RF
Rx Instructions:
Take By Mouth:
40 mg daily x3 days, 30 mg daily x3 days,
20 mg daily x3 days, 10 mg daily x3 days.
cyclobenzaprine 10 mg tablet
10 mg PO Q8H PRN (Reason: pain, muscle spasm) Qty: 30 0RF
No Action
furosemide [Lasix] 40 mg Tablet
40 mg PO NOON
atorvastatin [Lipitor] 20 mg Tablet
20 mg PO QPM
atenolol 100 mg Tablet
100 mg PO QPM
amlodipine [Norvasc] 5 mg Tablet
5 mg PO QPM
ascorbic acid (vitamin C) [Vitamin C] 500 mg Tablet
500 mg PO BID
methotrexate sodium 2.5 mg Tablet
10 mg PO SUSA
FiberCon 625 mg Tablet
1,250 mg PO TID
folic acid 1 mg Tablet
1 mg PO DAILY
magnesium oxide 250 mg magnesium Tablet
500 mg PO QPM
Orencia 50 mg/0.4 mL Syringe
50 mg SC Q4W
gabapentin 300 mg Capsule
900 mg PO TID
Eliquis 5 mg tablet
5 mg PO BID
Referrals:
Brian Saleem DO [Family Provider, Internal Medicine]
Dustin Tam MD [Active, Orthopedics] - Keep scheduled appt
Activity Restrictions/Additional Instructions:
As we discussed, you may alternate heat and cool compresses to the areas as needed for comfort
I sent a prescription to your pharmacy for prednisone, a steroid, started tomorrow as you were given a dose here today.
I also sent a prescription to your pharmacy for cyclobenzaprine which is Flexeril, a muscle relaxant. Do not drive or operate any machinery within 8 hours of taking it as it can make you sleepy and slow the reflexes.
Keep your appointment with your orthopedic doctor on Monday.
When the shoulder starts feeling better move it more and more as comfort permits to avoid a frozen shoulder.
Interventions
Interventions:
*Risk Screen - Suicide Last Done: 12/20/24 10:21
*General Assessment Last Done: 12/20/24 10:21
*Neglect/Abuse Screening Last Done: 12/20/24 10:21
*Nursing Disposition Last Done: 12/20/24 11:50
ED-Musculoskeletal Assessment Last Done: 12/20/24 10:53
Discharge Date and Time
Discharge Date/Time: 12/20/24 12:02
Print Language: CYMRO
[2024-12-20] MEDS: DECADRON 10 MG PO (10:49)
[2024-12-20] MEDS: VALIUM 5 MG PO (10:49)
== END 2024-12-20 12:02 | disposition home or self-care (01) ==
LOC: EMR 10:16
PROVIDERS: EMERGENCY PHYSICIAN Student in an Organized Health Care Education/Training Program; FAMILY PHYSICIAN Internal Medicine
DX: S16.1XXA Strain of muscle, fascia and tendon at neck level, initial encounter (principal); M75.52 Bursitis of left shoulder; X58.XXXA Exposure to other specified factors, initial encounter; E78.00 Pure hypercholesterolemia, unspecified; G47.30 Sleep apnea, unspecified; I10 Essential (primary) hypertension; Z79.01 Long term (current) use of anticoagulants; Z86.718 Personal history of other venous thrombosis and embolism; Z86.73 Personal history of transient ischemic attack (TIA), and cerebral infarction without residual deficits; Z90.49 Acquired absence of other specified parts of digestive tract
CPT/HCPCS: 99283; 73030